=== PATIENT | male | born 1960 | race Caucasian/White ===

== ENCOUNTER 2016-11-27 17:58 | Emergency (ER) | payer MEDICARE, OTHER ==
[2016-11-27 19:37] LABS: BASOPHIL 1.1 % (0-2); EOSINOPHIL 0 % (0-5); HCT 39.9 % (42.0-52.0); HGB 13.4 g/dl (13.2-18.0); LYMPHOCYTE 49.1 % (15-48); MCH 33.8 pg (25.0-31.0); MCHC 33.6 g/dL (32.0-36.0); MCV 100.5 fL (78.0-100.0); MONOCYTE 11.8 % (0-12); PLT 238 K/uL (150-400); RBC 3.97 M/uL (4.70-6.00); WBC 3.7 K/uL (4.0-10.5)
[2016-11-27 19:56] LABS: CREATININE 1.1 mg/dL (0.7-1.2); POTASSIUM 3.8 mmol/L (3.5-5.1)
== END 2016-11-27 20:57 | disposition home or self-care (01) ==
LOC: FER 17:58
PROVIDERS: Internal Medicine
DX: I87.8 Other specified disorders of veins (principal); Q90.9 Down syndrome, unspecified
CPT/HCPCS: 36415; 80048; 85025; 99284

== ENCOUNTER 2017-02-16 14:02 | Emergency (ER) | payer MEDICARE, OTHER ==
[2017-02-16 17:52] LABS: BILIRUBIN 1+ mg/dL (NEGATIVE); BLOOD 3+ Ery/uL (NEGATIVE); CLARITY CLEAR (CLEAR); COLOR YELLOW (YELLOW); GLUCOSE (U) NORMAL (NORMAL); KETONE (U) TRACE mg/dL (NEGATIVE); LEUKOCYTES TRACE Leu/uL (NEGATIVE); NITRITE NEGATIVE (NEGATIVE); PROTEIN 1+ mg/dL (NEGATIVE); SPECIFIC GRAVITY >=1.030 (1.001-1.030); pH 5.5 (5.0-9.0)
[2017-02-16 18:03] LABS: BACTERIA TRACE; URINARY RBC 20-50
[2017-02-16 18:50] LABS: BASOPHIL 0.6 % (0-2); EOSINOPHIL 0.1 % (0-5); HCT 40.5 % (42.0-52.0); HGB 13.8 g/dl (13.2-18.0); LYMPHOCYTE 38.6 % (15-48); MCH 33.7 pg (25.0-31.0); MCHC 34.1 g/dL (32.0-36.0); MONOCYTE 5.9 % (0-12); MPV 10.7 fL (6.0-9.5); NEUTROPHIL 54.8 % (41-80); PLT 209 K/uL (150-400); RBC 4.09 M/uL (4.70-6.00); RDW 14.6 % (11.5-14.0); WBC 6.8 K/uL (4.0-10.5)
[2017-02-16 19:10] LABS: ALBUMIN 3.1 g/dL (3.5-5.0); BILIRUBIN - TOTAL 0.3 mg/dL (0.1-1.0); CREATININE 1.4 mg/dL (0.7-1.2); GLOBULIN (CALCULATION) 3.5 g/dL (2.2-4.2); POTASSIUM 4.2 mmol/L (3.5-5.1); TOTAL PROTEIN 6.6 g/dL (6.4-8.3)
== END 2017-02-16 23:40 | disposition other institution (70) ==
LOC: FER 14:02
PROVIDERS: Emergency Medicine
DX: R13.10 Dysphagia, unspecified (principal); R62.7 Adult failure to thrive; R82.90 Unspecified abnormal findings in urine; E11.9 Type 2 diabetes mellitus without complications; Q90.9 Down syndrome, unspecified; Z79.84 Long term (current) use of oral hypoglycemic drugs
CPT/HCPCS: 36415; 71010; 80053; 81001; 82607; 84443; 85025; 87088; 87184